=== PATIENT | male | born 1990 | race Two or more races ===

== ENCOUNTER 2023-08-13 20:24 | Emergency (ER) | payer MEDICAID, SELFPAY ==
[2023-08-13 20:30] VITALS: BP 158/77; PULSE 112; RESP 18; TEMP 37.6; O2SAT 97; BMI 40.7
--- NOTE | 2023-08-13 20:30 | ED.URI ---
HPI - URI/Sore Throat General Chief Complaint: Upper Respiratory Symptoms Stated Complaint: Throat Pain Time Seen by Provider: 08/13/23 21:16 Related Data Previous Rx's ?Medication ?Instructions ?Recorded acetaminophen 500 mg tablet 500 mg PO Q6H PRN fever or pain 08/13/23 #20 tabs amoxicillin 500 mg-potassium 1 tab PO TID 10 days #30 tabs 08/13/23 clavulanate 125 mg tablet (Augmentin) ibuprofen 600 mg tablet 600 mg PO TID PRN fever or pain 08/13/23 #14 tabs Allergies Allergy/AdvReac Type Severity Reaction Status Date / Time No Known Allergies Allergy Verified 08/13/23 20:35 PMFSH Social History Social History Advance Directives: No Advance Directives Information Provided: No Do you have a plan to hurt others: No Plan Physical Exam Vital Signs: Vital Signs: Last Vital Signs Temp 102.5 F H 08/13/23 23:41 Pulse 101 H 08/13/23 23:41 Resp 20 08/13/23 23:41 BP 151/88 H 08/13/23 23:41 Pulse Ox 97 08/13/23 23:41 O2 Del Method Room Air 08/13/23 23:41 BMI result Body Mass Index 40.7 Course Course Course Narrative: This is a Rapid Medical Examination (RME) performed by Juancarlos Crane PA-C in triage. Full HPI, ROS, assessment and treatment plan per primary provider in the Main ED. 41 yo male presents to the ER for evaluation of an infection in my throat on the left side that started yesterday. He reports subjective fever, chills, lethargy. He also endorses voice changes and neck pain. exam is c/w left sided tonsillomegaly w/ exudate. uvula is midline and he is handling secretions normally. he is tachycardic and appears uncomfortable. Plan: labs, strep swab, pain control, imaging deferred to main provider Reevaluation(s) Reevaluation #1: see Dr. Silva's note Medications Administered Discontinued Medications Generic Name Dose Route Start Last Admin Trade Name Freq PRN Reason Stop Dose Admin Acetaminophen 975 mg 08/13/23 22:17 08/13/23 22:32 Acetaminophen 325 Mg Tablet PO 08/13/23 22:18 975 mg ONCE ONE Administration Al Hydroxide/Mg Hydroxide 15 ml 08/13/23 22:25 08/13/23 22:32 Magnesium Hydrox/Alum Hydrox 30 Ml Oral.Susp PO 08/13/23 22:26 15 ml ONCE ONE Administration Ampicillin Sodium/Sulbactam 100 mls @ 200 mls/hr 08/13/23 22:17 08/13/23 22:55 Sodium 3 gm/ Sodium Chloride IV 08/13/23 22:46 200 mls/hr ONCE ONE Administration Sodium Chloride 1,000 mls @ 999 mls/hr 08/13/23 22:18 08/13/23 22:55 Ns IVCONT 08/13/23 23:18 999 mls/hr .Q1H1M ONE Administration Ibuprofen 400 mg 08/13/23 22:17 08/13/23 22:32 Ibuprofen 400 Mg Tablet PO 08/13/23 22:18 400 mg ONCE ONE Administration Lidocaine HCl 15 ml 08/13/23 22:25 08/13/23 22:32 Lidocaine Hcl Viscous 2 % 15 Ml Solution MUCOUS MEM 08/13/23 22:26 15 ml ONCE ONE Administration Medical Decision Making Lab Data 08/13/23 20:41 08/13/23 20:41 Labs: Lab Results 08/13/23 08/13/23 Range/Units 20:41 22:48 WBC 21.3 H (4.8-10.8) X10*3/uL RBC 4.83 (4.60-5.80) X10*6/uL Hgb 14.8 (14.0-18.0) g/dl Hct 41.5 L (42.0-52.0) % MCV 85.9 (80.0-98.0) fL MCH 30.6 (27.0-33.0) pg MCHC 35.7 (31.0-36.0) g/dl RDW 12.9 (11.0-16.0) % Plt Count 283 (160-400) X10*3/uL MPV 10.2 (9.4-12.4) fL Immature Gran % (Auto) 0.7 H (0.0-0.4) % Neut % (Auto) 83.1 H (45-73) % Lymph % (Auto) 7.7 L (20-40) % [place] % (Auto) 8.1 (2-11) % Eos % (Auto) 0.0 (0-4) % Baso % (Auto) 0.4 (0-2) % Lymph # (Auto) 1.6 (1.2-4.9) X10*3/uL [place] # (Auto) 1.7 H (0.1-1.2) X10*3/uL Eos # (Auto) 0.0 (0.0-0.4) X10*3/uL Baso # (Auto) 0.1 (0.0-0.2) X10*3/uL Abs Immat Gran (auto) 0.14 H (0.00-0.03) X10*3/uL Absolute Neuts (auto) 17.5 H (2.0-8.3) x10*3/uL Absolute Nucleated RBC 0.000 (0.0-0.012) X10*3/uL Nucleated RBC % (auto) 0.0 (0.0-0.2) /100WBC Smear Tech's Comments VERIFIED Sodium 138 (135-145) mmol/L Potassium 4.1 (3.3-5.1) mmol/L Chloride 106 (96-108) mmol/L Carbon Dioxide 21 L (22-29) mmol/L Anion Gap 15 (12-20) BUN 8 L (9-16) mg/dL Creatinine 0.99 (0.5-1.4) mg/dL Estim Creat Clear Calc 155.9 Estimated GFR > 60 Random Glucose 113 (60-115) mg/dL Lactic Acid 1.1 (0.5-2.0) mmol/L Calcium 9.6 (8.4-10.2) mg/dL Magnesium 2.0 (1.6-2.6) mg/dL Total Bilirubin 0.7 (0.0-1.0) mg/dL Direct Bilirubin 0.3 (0.0-0.5) mg/dL AST 30 (5-37) U/L ALT 59 H (0-40) U/L Alkaline Phosphatase 90 (39-117) U/L Total Protein 8.3 H (6.5-8.0) g/dL Albumin 4.5 (3.5-5.0) g/dL S. pyogenes GrpA ROBINSON Positive A (Negative) Discharge Plan Discharge Clinical Impression: Acute streptococcal pharyngitis Patient Disposition: Home, Self-Care Instructions: Strep Throat (ED) Additional Instructions: Please follow-up with your primary care physician tomorrow. If you have any worsening or new symptoms, please return to the emergency room or call 911 Prescriptions: New amoxicillin-pot clavulanate [Augmentin] 500-125 mg tablet 1 tab PO TID 10 Days Qty: 30 0RF ibuprofen 600 mg tablet 600 mg PO TID PRN (Reason: fever or pain) Qty: 14 0RF acetaminophen 500 mg tablet 500 mg PO Q6H PRN (Reason: fever or pain) Qty: 20 0RF Stand Alone Forms: Work/School Release Interventions: ED Discharge Assessment Last Done: 08/13/23 23:41 Discharge Date/Time: 08/13/23 23:42 Print Language: Guyanese
[2023-08-13 21:04] LABS: Basophils Absolute Auto 0.1 X10*3/uL (0.0-0.2); Basophils Percent Auto 0.4 % (0-2); Hematocrit 41.5 % (42.0-52.0); Hemoglobin 14.8 g/dl (14.0-18.0); IDNOW Serial# 08D9AD1C; Imm Gran Abs Auto 0.14 X10*3/uL (0.00-0.03); Imm Gran Pct Auto 0.7 % (0.0-0.4); Lymphocytes Absolute Auto 1.6 X10*3/uL (1.2-4.9); Lymphocytes Percent Auto 7.7 % (20-40); MANUAL DIFF FLAG SCAN; Mean Corpuscular HGB Conc 35.7 g/dl (31.0-36.0); Mean Corpuscular Hemoglobin 30.6 pg (27.0-33.0); Mean Corpuscular Volume 85.9 fL (80.0-98.0); Mean Platelet Volume 10.2 fL (9.4-12.4); Monocytes Absolute Auto 1.7 X10*3/uL (0.1-1.2); Monocytes Percent Auto 8.1 % (2-11); Neutrophils Absolute Auto 17.5 x10*3/uL (2.0-8.3); Neutrophils Percent Auto 83.1 % (45-73); Platelet Count 283 X10*3/uL (160-400); Red Blood Count 4.83 X10*6/uL (4.60-5.80); Red Cell Distribution Width 12.9 % (11.0-16.0); SCAN SMEAR FLAG 1; Strep A Nucleic Acid Positive (Negative)
[2023-08-13 21:05] LABS: Alanine Aminotransferase 59 U/L (0-40); Albumin Level 4.5 g/dL (3.5-5.0); Alkaline Phosphatase 90 U/L (39-117); Anion Gap 15 (12-20); Aspartate Amino Transferase 30 U/L (5-37); Bilirubin Direct 0.3 mg/dL (0.0-0.5); Bilirubin Total 0.7 mg/dL (0.0-1.0); Blood Urea Nitrogen 8 mg/dL (9-16); Calcium 9.6 mg/dL (8.4-10.2); Carbon Dioxide 21 mmol/L (22-29); Chloride 106 mmol/L (96-108); Creatinine Clr Calc Pharmacy 155.9; Estimated Glomerular Filt Rate > 60; Glucose Random 113 mg/dL (60-115); Potassium 4.1 mmol/L (3.3-5.1); Sodium 138 mmol/L (135-145); Total Protein 8.3 g/dL (6.5-8.0)
[2023-08-13 21:25] LABS: White Blood Count 21.3 X10*3/uL (4.8-10.8)
[2023-08-13 21:26] LABS: SLIDE REVIEW VERIFIED
[2023-08-13 22:06] VITALS: BP 151/88; PULSE 114; RESP 24; TEMP 39.2; O2SAT 97
--- NOTE | 2023-08-13 22:21 | ED.GENADULT ---
HPI - General Adult General Chief complaint: Upper Respiratory Symptoms Stated complaint: Throat Pain Time Seen by Provider: 08/13/23 21:16 Source: patient Mode of arrival: ambulatory Limitations: no limitations History of Present Illness ED Provider: Dr. Aure Sher HPI narrative: Patient comes to the emergency room complaining of sore throat for 2 days. Patient complaining of fever, pain with swallowing, no difficulty breathing, able to swallow but hurts doing so. Patient reports bilateral ear congestion, nasal congestion, mild headache. Patient denies neck pain or stiffness Related Data Previous Rx's ?Medication ?Instructions ?Recorded acetaminophen 500 mg tablet 500 mg PO Q6H PRN fever or pain 08/13/23 #20 tabs amoxicillin 500 mg-potassium 1 tab PO TID 10 days #30 tabs 08/13/23 clavulanate 125 mg tablet (Augmentin) ibuprofen 600 mg tablet 600 mg PO TID PRN fever or pain 08/13/23 #14 tabs Allergies Allergy/AdvReac Type Severity Reaction Status Date / Time No Known Allergies Allergy Verified 08/13/23 20:35 Review of Systems Review of Systems: Constitutional : No Weight loss, No Fever, No Chills, No Night Sweats, No Fatigue, No Malaise ENT/Mouth : No Hearing loss, No Ear Pain, No Nasal Congestion, No Sinus Pain, No Hoarseness, complaining of sore throat, complaining of nasal congestion No Rhinorrhea, No Swallowing Difficulty Eyes: No Eye Pain, No Swelling, No Redness, No Foreign Body, No Discharge, No Vision Changes Cardiovascular : No Chest Pain, No SOB, No Dyspnea on Exertion, No Orthopnea, No Edema, No Palpitations Respiratory : No Cough, No Sputum, No Wheezing, No Smoke Exposure, No Dyspnea Gastrointestinal : No Nausea, No Vomiting, No Diarrhea, No Constipation, No abdominal Pain, No Hematochezia, No Melena Genitourinary : no irregular bleeding, No Dysuria, No Urinary Frequency, No Hematuria, No Urinary Incontinence, No Urgency, No Flank Pain, No Urinary Flow Changes, No Hesitancy Musculoskeletal : No joint pain, No Myalgias, No Joint Swelling Skin : No Skin Lesions, No rash Neuro : No Weakness, No Numbness, No Paresthesias, No Loss of Consciousness, No Dizziness, complaining of Headache Psych : No Anxiety/Panic, No Depression, No SI/HI/AH/VH, No Social Issues, Heme/Lymph: No Bruising, No Bleeding,No Lymphadenopathy Endocrine : No Polyuria, No Polydipsia, No Temperature Intolerance [facility] Social History Social History Advance Directives: No Advance Directives Information Provided: No Do you have a plan to hurt others: No Plan Physical Exam ED Vital Signs: Vital Signs - 24 hr 08/13/23 20:30 08/13/23 22:06 Temperature 99.6 F 102.5 F H Pulse Rate 112 H 114 H Respiratory Rate 18 24 H Blood Pressure 158/77 H 151/88 H Pulse Oximetry 97 97 Oxygen Delivery Method Room Air Room Air BMI result Body Mass Index 40.7 Const Other: Appearance: Alert. Oriented X3. No acute distress. Eyes: Pupils equal, round and reactive to light. ENT: Erythematous oropharynx, inflamed tonsils with exudates bilaterally, no obvious abscess, no peritonsillar phlegmon present Neck: Normal inspection. Neck supple. No lymph nodes noted. No crepitus CVS: Normal heart rate and rhythm. Pulses normal. Normal S1 and S2 Respiratory: No respiratory distress. Breath sounds normal. No Wheezing. No rales Abdomen: Soft and nontender. No rigidity. No distention. Skin: Clammy, Normal skin color. Normal skin turgor. Extremities: No lower extremity edema. No Lacerations. No Rash Neuro: Oriented X 3. No motor deficit. No sensory deficit. Moving all extremities. No slurred speech. CN 2 through 12 grossly intact Psych: calm, cooperative, normal affect Course Course Course Narrative: Patient has not been able to eat or drink anything for couple of days due to the pain. Patient was given IV fluids, ampicillin/sulbactam IV, viscous lidocaine, Tylenol and Motrin Medications Administered Discontinued Medications Generic Name Dose Route Start Last Admin Trade Name Freq PRN Reason Stop Dose Admin Acetaminophen 975 mg 08/13/23 22:17 08/13/23 22:32 Acetaminophen 325 Mg Tablet PO 08/13/23 22:18 975 mg ONCE ONE Administration Al Hydroxide/Mg Hydroxide 15 ml 08/13/23 22:25 08/13/23 22:32 Magnesium Hydrox/Alum Hydrox 30 Ml Oral.Susp PO 08/13/23 22:26 15 ml ONCE ONE Administration Ampicillin Sodium/Sulbactam 100 mls @ 200 mls/hr 08/13/23 22:17 08/13/23 22:55 Sodium 3 gm/ Sodium Chloride IV 08/13/23 22:46 200 mls/hr ONCE ONE Administration Sodium Chloride 1,000 mls @ 999 mls/hr 08/13/23 22:18 08/13/23 22:55 Ns IVCONT 08/13/23 23:18 999 mls/hr .Q1H1M ONE Administration Ibuprofen 400 mg 08/13/23 22:17 08/13/23 22:32 Ibuprofen 400 Mg Tablet PO 08/13/23 22:18 400 mg ONCE ONE Administration Lidocaine HCl 15 ml 08/13/23 22:25 08/13/23 22:32 Lidocaine Hcl Viscous 2 % 15 Ml Solution MUCOUS MEM 08/13/23 22:26 15 ml ONCE ONE Administration Medical Decision Making Medical Decision Making MDM Narrative: -patient's white blood cell count is significantly elevated 21.3. Lactic within normal limits, Patient's blood pressure elevated. Patient does have a fever and is tachycardic secondary to the fever. Sepsis is not suspected -Patient overall feeling better. -discussed with the patient to return to the emergency room if his symptoms do not improve within the next 24-48 hours. At any point if he has any worsening symptoms he is to return to the emergency room. Differential Diagnosis Differential Diagnoses: The differential diagnosis associated with the presentation includes (Strep throat, pharyngeal abscess) Lab Data MDM Lab Attestation statement: I reviewed the patient's lab results. 08/13/23 20:41 08/13/23 20:41 Labs: Lab Results 08/13/23 08/13/23 Range/Units 20:41 22:48 WBC 21.3 H (4.8-10.8) X10*3/uL RBC 4.83 (4.60-5.80) X10*6/uL Hgb 14.8 (14.0-18.0) g/dl Hct 41.5 L (42.0-52.0) % MCV 85.9 (80.0-98.0) fL MCH 30.6 (27.0-33.0) pg MCHC 35.7 (31.0-36.0) g/dl RDW 12.9 (11.0-16.0) % Plt Count 283 (160-400) X10*3/uL MPV 10.2 (9.4-12.4) fL Immature Gran % (Auto) 0.7 H (0.0-0.4) % Neut % (Auto) 83.1 H (45-73) % Lymph % (Auto) 7.7 L (20-40) % [place] % (Auto) 8.1 (2-11) % Eos % (Auto) 0.0 (0-4) % Baso % (Auto) 0.4 (0-2) % Lymph # (Auto) 1.6 (1.2-4.9) X10*3/uL [place] # (Auto) 1.7 H (0.1-1.2) X10*3/uL Eos # (Auto) 0.0 (0.0-0.4) X10*3/uL Baso # (Auto) 0.1 (0.0-0.2) X10*3/uL Abs Immat Gran (auto) 0.14 H (0.00-0.03) X10*3/uL Absolute Neuts (auto) 17.5 H (2.0-8.3) x10*3/uL Absolute Nucleated RBC 0.000 (0.0-0.012) X10*3/uL Nucleated RBC % (auto) 0.0 (0.0-0.2) /100WBC Smear Tech's Comments VERIFIED Sodium 138 (135-145) mmol/L Potassium 4.1 (3.3-5.1) mmol/L Chloride 106 (96-108) mmol/L Carbon Dioxide 21 L (22-29) mmol/L Anion Gap 15 (12-20) BUN 8 L (9-16) mg/dL Creatinine 0.99 (0.5-1.4) mg/dL Estim Creat Clear Calc 155.9 Estimated GFR > 60 Random Glucose 113 (60-115) mg/dL Lactic Acid 1.1 (0.5-2.0) mmol/L Calcium 9.6 (8.4-10.2) mg/dL Magnesium 2.0 (1.6-2.6) mg/dL Total Bilirubin 0.7 (0.0-1.0) mg/dL Direct Bilirubin 0.3 (0.0-0.5) mg/dL AST 30 (5-37) U/L ALT 59 H (0-40) U/L Alkaline Phosphatase 90 (39-117) U/L Total Protein 8.3 H (6.5-8.0) g/dL Albumin 4.5 (3.5-5.0) g/dL S. pyogenes GrpA ROBINSON Positive A (Negative) Discharge Plan Discharge Clinical Impression: Acute streptococcal pharyngitis Patient Disposition: Home, Self-Care Instructions: Strep Throat (ED) Additional Instructions: Please follow-up with your primary care physician tomorrow. If you have any worsening or new symptoms, please return to the emergency room or call 911 Prescriptions: New amoxicillin-pot clavulanate [Augmentin] 500-125 mg tablet 1 tab PO TID 10 Days Qty: 30 0RF ibuprofen 600 mg tablet 600 mg PO TID PRN (Reason: fever or pain) Qty: 14 0RF acetaminophen 500 mg tablet 500 mg PO Q6H PRN (Reason: fever or pain) Qty: 20 0RF Print Language: Bangladeshi
[2023-08-13] MEDS: Ibuprofen 400 MG TABLET PO (22:32)
[2023-08-13] MEDS: Acetaminophen 325 MG TABLET 975 MG PO (22:32)
[2023-08-13] MEDS: Lidocaine HCl Viscous 2 % 15 ML SOLUTION MUCOUS MEM (22:32)
[2023-08-13] MEDS: Magnesium Hydrox/Alum Hydrox 30 ML ORAL.SUSP 15 ML PO (22:32)
[2023-08-13] MEDS: 0.9 % Sodium Chloride 1,000 ML 999 ML IVCONT (22:55)
[2023-08-13] MEDS: Ampicillin Sodium/Sulbactam Na 3 GM in 0.9 % Sodium Chloride 100 ML IV (22:55)
[2023-08-13 23:04] LABS: Lactic Acid 1.1 mmol/L (0.5-2.0)
[2023-08-13 23:41] VITALS: BP 151/88; PULSE 101; RESP 20; TEMP 39.2; O2SAT 97
== END 2023-08-13 23:42 | disposition home or self-care (01) ==
PROVIDERS: Physician Assistant; Emergency Provider Emergency Medicine
DX: J02.0 Streptococcal pharyngitis (principal); R50.9 Fever, unspecified; R00.0 Tachycardia, unspecified
CPT/HCPCS: 36415; 80048; 80076; 83605; 83735; 85025; 87040; 87651; 96374; 99284; J0295